=== PATIENT | female | born 1990 ===

== ENCOUNTER 2016-10-15 19:02 | Inpatient (IN) | payer MEDICAID ==
--- NOTE | 2016-10-04 15:19 | HISTORY & PHYSICAL ---
History of Present Illness (Josue Marquis M.D.; 07/03/2016 3:35 PM) The patient is a 26 year old female who presents with a complaint of Visit. The patient is here for a initial (late registrant) visit. Last menstrual period: Date: (last bleeding in "March"). The patient feels well with no complaints. The patient denies fever, abdominal pain, altered vision, edema - fingers, edema - lower extremities, heartburn, nausea or vomiting. The patient denies significant vaginal discharge. There has been no vaginal bleeding. Urinary problems include frequency. There have been no bowel problems. Nutrition: appropriate balanced diet and supplemental vitamins & iron. Previous evaluations: ultrasound (SLIUP 25w6d), RPR/VDRL (neg), rubella antibody (immune), blood typing (O+), antibody screen (neg), HIV antibody titer (neg), hepatitis B (neg) and other (TSH normal). Habits: no tobacco, alcohol or illicit drugs since learning of . Social: coping/adjusting to well and family supportive. Problem List/Past Medical (Josue Marquis M.D.; 07/03/2016 3:03 PM) History of chicken pox (Z86.19) Allergies (Maricruz Holman RN; 07/03/2016 2:43 PM) No Known Skwexbxxz41/25/2016 Family History (Josue Marquis M.D.; 07/03/2016 3:07 PM) First Degree Relatives Mother. HTN. Breast Cancer Maternal Aunt. Suicide Maternal Cousin. Niece 2 of the brother's daughters have Bermudez van Crevald syndrome, autosomal recessive Social History (Maricruz Holman RN; 07/03/2016 2:53 PM) Tobacco Use Never smoker. Alcohol Use None. Marital status . Octavio "Maryuri Ontiveros Medication History (Maricruz Holman RN; 07/03/2016 2:43 PM) Forte (1 Oral daily) Active. / History (Josue Marquis M.D.; 07/03/2016 3:29 PM) 1. Past Surgical History (Josue Marquis M.D.; 07/03/2016 3:08 PM) None07/03/2016 Review of Systems (Josue Marquis M.D.; 07/03/2016 3:29 PM) General Not Present- Fever. Skin Not Present- Rash. HEENT Not Present- Bleeding Gums, Blurred Vision and Headache. Respiratory Not Present- Difficulty Breathing. Breast Not Present- Breast Mass. Cardiovascular Not Present- Chest Pain, Fainting / Blacking Out and Shortness of Breath. Gastrointestinal Not Present- Abdominal Pain, Constipation, Nausea and Vomiting. Female Genitourinary Present- Movements Present and Frequency. Not Present - Contractions, regular, Painful Urination, Vaginal Bleeding and Vaginal Fluid. Musculoskeletal Present- Backache. Not Present- Leg Cramps. Neurological Not Present- Dizziness. Psychiatric Not Present- Depression. Hematology Not Present- Bleeding Problems and DVT. Vitals (Josue Marquis M.D.; 07/03/2016 3:29 PM) 07/03/2016 2:48 PM Weight: 194 lb Height: 66.5in Body Surface Area: 1.99 m Body Mass Index: 30.84 kg/m LMP: 12/29/2015 BP: 116/70 (Sitting, Left Arm, Standard) Physical Exam (Josue Marquis M.D.; 07/03/2016 3:32 PM) General General Appearance-Well Appearing. Build & Nutrition-overweight. Integumentary Integumentary General Characteristics Overall examination of the patient's skin reveals - no rashes. Head and Neck Neck Global Assessment - full range of motion, No lymphadenopathy. Thyroid Gland Characteristics - normal size and consistency and no palpable nodules. ENMT Mouth and Throat Oral Cavity/Oropharynx - Oropharynx - no evidence of airway distress observed. Chest and Lung Exam Chest and lung exam reveals -Clear and quiet, even and easy respiratory effort with no use of accessory muscles. Breast Commercial Solar Sales Consultant-present for exam. Nipples Characteristics - Bilateral - Normal. Breast - Bilateral-Symmetric, Non Tender, No Peau d' [place]. Breast Lump-No Palpable Breast Mass. Cardiovascular Cardiovascular examination reveals -normal heart sounds, regular rate and rhythm with no murmurs. Abdomen Inspection Inspection of the abdomen reveals - No Hernias. Contour - . Palpation/Percussion Palpation and Percussion of the abdomen reveal - Non Tender, No hepatosplenomegaly and No Palpable abdominal masses. Other Characteristics - No Costovertebral angle tenderness - Left, No Costovertebral angle tenderness - Right. Female Genitourinary External Genitalia Vulva - Characteristics - Normal. Labia Majora - Characteristics - Bilateral - Normal. Perineum - Normal. Clitoris - Normal. Labia Minora - Characteristics - Bilateral - Normal. Introitus - Characteristics - Non Tender. Bartholin's Gland - Bilateral - Non Tender. Urethra - Characteristics - Normal. Urethral Meatus - Characteristics - No Urethral Caruncle. [place] Gland - Bilateral - Normal. Speculum & Bimanual Vagina - Vaginal Wall - Normal. Vaginal Lesions - None. Vaginal Mucosa - [place] and Rugae, No Secretions. Cervix - Characteristics - Nulliparous, No Motion tenderness. Uterus - Characteristics - Non Tender. Position - Anteverted. Adnexa - Characteristics - Bilateral - Non Palpable. Bladder - Not Tender. Obstetric Exam Fundal Height - 29 cm. Heart Rate - 135 bpm. Commercial Solar Sales Consultant-present for exam . Peripheral Vascular Lower Extremity Palpation - Tenderness - Bilateral - Non Tender. Edema - Bilateral - No edema. Neuropsychiatric Mental status exam performed with findings of-Oriented X3 with appropriate mood and affect. Lymphatic Axillary General Axillary Region: Bilateral - Description - No Localized lymphadenopathy. Supraclavicular Nodes: Bilateral - Supraclavicular Lymph Nodes - No supraclavicular lymphadenopathy. Assessment & Plan (Josue Marquis M.D.; 07/03/2016 3:34 PM) Insufficient care in second trimester (O09.32) Impression: Late registrant, unknown LMP. Current Plans ROUTINE OBSTETRIC CARE (96632) Thin prep Pap (19266) CHLAMYDIA TRAC, AMPL, INFCT ANTIGEN (99405) NEISSERIA STEFANIE, AMPL, INFCT ANTIGEN (90369) SPECIMEN HNDLNG/TRNSPRT, OFFC > LAB (73834) Follow up in 2 weeks or as needed Pt Education - Labor: labor Signed by Josue Marquis M.D. (07/03/2016 3:35 PM) NENA
[2016-10-15] MEDS ORDERED: FENTANYL 100 MCG/2 ML VIAL IV PRN (19:09)
[2016-10-15] MEDS ORDERED: ONDANSETRON HCL 4 MG/2 ML VIAL IV PRN (19:09)
[2016-10-15] MEDS ORDERED: MISOPROSTOL 200 MCG TABLET PO PRN ×2 (19:09)
[2016-10-15] MEDS ORDERED: LIDOCAINE HCL/PF 1% 30 ML VIAL SUBCUT PRN (19:09)
[2016-10-15] MEDS ORDERED: HOME MEDICATION LIST NEEDED 1 EA EACH MISC ONE (19:09)
[2016-10-15] MEDS ORDERED: OXYTOCIN/NORMAL SALINE 30 UNIT/500 ML BAG IV SCH (19:09)
[2016-10-15] MEDS: FENTANYL 100 MCG/2 ML VIAL IV ONE (19:30)
[2016-10-15 19:59] LABS: BASOPHILS 0.3 % (0.0-2.0); EOSINOPHILS 0.9 % (0.0-6.0); EOSINOPHILS# 0.1 X 10^3uL (0.0-0.4); HEMATOCRIT 39.7 % (36.0-48.0); HEMOGLOBIN 13.4 g/dL (12.0-16.0); LYMPHOCYTES 14.3 % (20.0-40.0); LYMPHOCYTES# 1.3 X 10^3uL (0.8-3.8); MEAN CELL VOLUME 88.1 fL (84.0-102.0); MEAN CORPUS. HGB CONCENTRATION 33.7 g/dL (32.0-36.0); MEAN CORPUSCULAR HEMOGLOBIN 29.7 pg (29.0-35.0); MEAN PLATELET VOLUME 8.5 fL (7.4-10.4); MONOCYTES 5.7 % (2.0-10.0); MONOCYTES# 0.5 X 10^3uL (0.2-1.0); NEUTROPHILS 78.8 % (54.0-75.0); PLATELET COUNT 193 X 10^3uL (130-440); RED CELL DISTRIBUTION WIDTH 12.9 % (11.5-14.5); WHITE BLOOD COUNT 8.9 X 10^3uL (3.9-10.7)
--- NOTE | 2016-10-15 20:06 | PROGRESS NOTE:Antepartum ---
Assessment and Plan - Date of Encounter Date of Encounter: 10/15/16 (1) Insufficient care in third trimester Status: Acute Assessment and plan: Patient arrived with early prodromal symptoms and favorable cervix. I preformed AROM at 8pm of clear fluid. If she does not get into active labor over a few hours will add Pitocin but I suspect this will be sufficient. Current Visit: No - Time Spent With Patient Total time spent with greater than 50% in coordination of care (as documented) at patient's floor/unit and/or counseling patient: CABIN CREW: Antepartum PN Subj - Subjective Interval history: 26 yo at 41 3/7 by late 28 week U/S and unknown LMP was coming in for induction. She lost mucus plug 4 days ago and has had irreg ctx since but never q 5 min, waxing/waning in freq and severity. Good movement. Scant spotting today intermittently. No Medical problems No Surgeries Meds: PNV NKDA No TOB, ETOH, MJ, Rec Drugs to [facility] Family Hx: Autosommal Recessive disease in 2 Nieces: Bermudez van Crevald Syndrome , HTN Patient reports: appetite normal, voiding normally, pain well controlled Antepartum ROS: contractions (irreg), movement normal, no vaginal bleeding , no loss of fluid, no headache, no shortness of breath, no swelling CABIN CREW: Antepartum PN Obj Exam - Latest Vital Signs and I&O Latest Vital Signs/I&O: Intake & Output 10/15/16 10/15/16 10/16/16 05:59 17:59 05:59 Weight 101.605 kg - Exam Heart Monitor: category I Cervical Dilatation Degree: 4 Cervical Effacement Percentage: 80 Station: -1
[2016-10-15 20:46] LABS: ABO GROUP TYPE O; ANTIBODY SCREEN NEGATIVE; RH TYPE POSITIVE
[2016-10-16] MEDS: LACTATED RINGERS 1,000 ML IV SCH ×2 (00:58→03:30)
[2016-10-16] MEDS: FENTANYL 100 MCG/2 ML VIAL IV ONE (01:40)
--- NOTE | 2016-10-16 03:45 | PROGRESS NOTE:Antepartum ---
Assessment and Plan - Date of Encounter Date of Encounter: 10/16/16 (1) Insufficient care in third trimester Status: Acute Assessment and plan: I placed internal monitors. Contractions pattern inadequate. So far single variable but not a late deceleration. 130-140 with mild variability. Will get CORBY and start Pit if tolerated. Current Visit: No - Time Spent With Patient Total time spent with greater than 50% in coordination of care (as documented) at patient's floor/unit and/or counseling patient: EMERGENCY MEDICINE SPECIALIST: Antepartum PN Subj - Subjective Interval history: Contractions have increased with some cervical change. RN called for variables that were difficult to identify but may have been non recurrent lates. Patient not on pitocin yet. Patient reports: appetite normal, voiding normally, pain well controlled (Had Fentanyl, Would like to get CORBY) Antepartum ROS: contractions (irreg), movement normal, no vaginal bleeding , no loss of fluid, no headache, no shortness of breath, no swelling EMERGENCY MEDICINE SPECIALIST: Antepartum PN Obj Exam - Latest Vital Signs and I&O Latest Vital Signs/I&O: Vital Signs Temp 36.1 C L 10/16/16 02:05 Pulse 87 10/16/16 02:05 Resp 18 10/16/16 02:05 BP 129/85 10/16/16 02:05 Pulse Ox 91 10/16/16 02:05 Intake & Output 10/15/16 10/15/16 10/16/16 05:59 17:59 05:59 Intake Total 690 Output Total 350 Balance 340 Weight 101.605 kg Intake: IV 690 Left Hand 190 Lr 1000 ml Bag 1,000 ml @ 500 999 mls/hr IV CONT ANDREAS Rx#:[id number] Output: Urine 350 Other: Urine Appearance Clear Urine Color Yellow Voiding Method Toilet - Exam Heart Monitor: category II Cervical Dilatation Degree: 6 Cervical Effacement Percentage: 90 Station: -1 - Lab Labs: Laboratory Last Values WBC 8.9 X 10^3uL (3.9-10.7) 10/15/16 19:38 RBC 4.50 X 10^6uL (4.20-6.10) 10/15/16 19:38 Hgb 13.4 g/dL (12.0-16.0) 10/15/16 19:38 Hct 39.7 % (36.0-48.0) 10/15/16 19:38 MCV 88.1 fL (84.0-102.0) 10/15/16 19:38 MCH 29.7 pg (29.0-35.0) 10/15/16 19:38 MCHC 33.7 g/dL (32.0-36.0) 10/15/16 19:38 RDW 12.9 % (11.5-14.5) 10/15/16 19:38 Plt Count 193 X 10^3uL (130-440) 10/15/16 19:38 MPV 8.5 fL (7.4-10.4) 10/15/16 19:38 Neutrophils % 78.8 % (54.0-75.0) H 10/15/16 19:38 Lymphocytes % 14.3 % (20.0-40.0) L 10/15/16 19:38 Eosinophils % 0.9 % (0.0-6.0) 10/15/16 19: Basophils % 0.3 % (0.0-2.0) 10/15/16 19:38 Neutrophils # 7.0 X 10^3uL (2.6-6.7) H 10/15/16 19:38 Lymphocytes # 1.3 X 10^3uL (0.8-3.8) 10/15/16 19:38 Monocytes 5.7 % (2.0-10.0) 10/15/16 19:38 Monocytes # 0.5 X 10^3uL (0.2-1.0) 10/15/16 19: Eosinophils # 0.1 X 10^3uL (0.0-0.4) 10/15/16 19:38 Basophils # 0.0 X 10^3uL (0.0-0.1) 10/15/16 19:38 ABO Group Type o 10/15/16 19:38 Rh Factor Positive 10/15/16 19:38 Antibody Screen Negative 10/15/16:38
[2016-10-16] MEDS ORDERED: ROPIVACAINE HCL IN 0.9%NACL/PF 120 MG/60 ML SYRINGE ONE ×2 (03:49→08:03)
[2016-10-16] MEDS ORDERED: FENTANYL 100 MCG/2 ML VIAL ONE (04:06)
[2016-10-16] MEDS ORDERED: TERBUTALINE SULFATE 1 MG/ML VIAL SQ PRN (04:31)
--- NOTE | 2016-10-16 04:36 | PROGRESS NOTE:Antepartum ---
Assessment and Plan - Date of Encounter Date of Encounter: 10/16/16 (1) Insufficient care in third trimester Status: Acute Assessment and plan: FHT's more reassuring and Ctx inadequate. Will start Pitocin. Current Visit: No - Time Spent With Patient Total time spent with greater than 50% in coordination of care (as documented) at patient's floor/unit and/or counseling patient: ALIGNER TYPEWRITER: Antepartum PN Subj - Subjective Interval history: Pt just received CORBY. FHT's now Cat I on internals. Inadequate ctx pattern. Patient reports: appetite normal, voiding normally, pain well controlled (Had Fentanyl, Would like to get CORBY) Antepartum ROS: contractions (irreg), movement normal, no vaginal bleeding , no loss of fluid, no headache, no shortness of breath, no swelling ALIGNER TYPEWRITER: Antepartum PN Obj Exam - Latest Vital Signs and I&O Latest Vital Signs/I&O: Vital Signs Temp 36.1 C L 10/16/16 04:01 Pulse 85 10/16/16 04:28 Resp 20 10/16/16 04:09 BP 119/62 10/16/16 04:28 Pulse Ox 92 10/16/16 04:28 Intake & Output 10/15/16 10/15/16 10/16/16 05:59 17:59 05:59 Intake Total 690 Output Total 350 Balance 340 Weight 101.605 kg Intake: IV 690 Left Hand 190 Lr 1000 ml Bag 1,000 ml @ 500 999 mls/hr IV CONT ANDREAS Rx#:[id number] Output: Urine 350 Other: Urine Appearance Clear Urine Color Yellow Voiding Method Toilet - Exam Heart Monitor: category II - Lab Labs: Laboratory Last Values WBC 8.9 X 10^3uL (3.9-10.7) 10/15/16 19:38 RBC 4.50 X 10^6uL (4.20-6.10) 10/15/16 19:38 Hgb 13.4 g/dL (12.0-16.0) 10/15/16 19:38 Hct 39.7 % (36.0-48.0) 10/15/16 19:38 MCV 88.1 fL (84.0-102.0) 10/15/16 19:38 MCH 29.7 pg (29.0-35.0) 10/15/16 19:38 MCHC 33.7 g/dL (32.0-36.0) 10/15/16 19:38 RDW 12.9 % (11.5-14.5) 10/15/16 19:38 Plt Count 193 X 10^3uL (130-440) 10/15/16 19:38 MPV 8.5 fL (7.4-10.4) 10/15/16 19:38 Neutrophils % 78.8 % (54.0-75.0) H 10/15/16 19:38 Lymphocytes % 14.3 % (20.0-40.0) L 10/15/16 19:38 Eosinophils % 0.9 % (0.0-6.0) 10/15/16 19:38 Basophils % 0.3 % (0.0-2.0) 10/15/16 19:38 Neutrophils # 7.0 X 10^3uL (2.6-6.7) H 10/15/16 19:38 Lymphocytes # 1.3 X 10^3uL (0.8-3.8) 10/15/16 19:38 Monocytes 5.7 % (2.0-10.0) 10/15/16 19:38 Monocytes # 0.5 X 10^3uL (0.2-1.0) 10/15/16 19:38 Eosinophils # 0.1 X 10^3uL (0.0-0.4) 10/15/16 19:38 Basophils # 0.0 X 10^3uL (0.0-0.1) 10/15/16 19:38 ABO Group Type o 10/15/16 19:38 Rh Factor Positive 10/15/16 19:38 Antibody Screen Negative 10/15/16 19:38
[2016-10-16] MEDS ORDERED: OXYTOCIN/NORMAL SALINE 30 UNIT/500 ML BAG IV SCH (05:00)
[2016-10-16] MEDS ORDERED: LACTATED RINGERS 1,000 ML IV SCH ×2 (05:00→09:00)
[2016-10-16] MEDS: PHENYLEPHRINE HCL 10,000 MCG/ML VIAL ONE ×2 (05:41→07:09)
--- NOTE | 2016-10-16 06:21 | PROGRESS NOTE:Antepartum ---
Assessment and Plan - Date of Encounter Date of Encounter: 10/16/16 (1) Insufficient care in third trimester Status: Acute Assessment and plan: Will continue with expectant management. Minimize stress. Slow progress but present. Current Visit: No - Time Spent With Patient Total time spent with greater than 50% in coordination of care (as documented) at patient's floor/unit and/or counseling patient: TAPE EDGE MACHINE OPERATOR: Antepartum PN Subj - Subjective Interval history: Pit was started at 5:30. Up to 4 mu. Had an 2 min episode of bradycardia to 70's. Maternal BP did drop 112/43 but back up to normal. O2 on , position changes and Pit off. Now FHT's back to 140's. Cat II currently. She also had a couplet contraction but long spaces between. Will leave Pit off for recovery, Turn off O2 shortly and continue expectant management without Pitocin. Per RN SVE now 8 100% and 0. Patient reports: appetite normal, voiding normally, pain well controlled (Had Fentanyl, Would like to get CORBY) Antepartum ROS: contractions (irreg), loss of fluid (remains clear), movement normal, no vaginal bleeding, no headache, no shortness of breath, no swelling TAPE EDGE MACHINE OPERATOR: Antepartum PN Obj Exam - Latest Vital Signs and I&O Latest Vital Signs/I&O: Vital Signs Temp 36.8 C 10/16/16 05:57 Pulse 78 10/16/16 05:57 Resp 14 10/16/16 05:57 BP 112/43 10/16/16 05:57 Pulse Ox 92 10/16/16 05:57 Intake & Output 10/15/16 10/16/16 10/16/16 17:59 05:59 17:59 Intake Total 690 Output Total 350 Balance 340 Weight 101.605 kg Intake: IV 690 Left Hand 190 Lr 1000 ml Bag 1,000 ml @ 500 999 mls/hr IV CONT ANDREAS Rx#:[id number] Output: Urine 350 Other: Urine Appearance Clear Urine Color Yellow Uretheral (Forde) Yellow Voiding Method Toilet 10/16/16 06:33 - Exam Heart Monitor: category II Cervical Dilatation Degree: 8 Cervical Effacement Percentage: 100 Station: 0 - Lab Labs: Laboratory Last Values WBC 8.9 X 10^3uL (3.9-10.7) 10/15/16 19:38 RBC 4.50 X 10^6uL (4.20-6.10) 10/15/16 19:38 Hgb 13.4 g/dL (12.0-16.0) 10/15/16 19:38 Hct 39.7 % (36.0-48.0) 10/15/16 19:38 MCV 88.1 fL (84.0-102.0) 10/15/16 19:38 MCH 29.7 pg (29.0-35.0) 10/15/16 19:38 MCHC 33.7 g/dL (32.0-36.0) 10/15/16 19:38 RDW 12.9 % (11.5-14.5) 10/15/16 19:38 Plt Count 193 X 10^3uL (130-440) 10/15/16 19:38 MPV 8.5 fL (7.4-10.4) 10/15/16 19:38 Neutrophils % 78.8 % (54.0-75.0) H 10/15/16 19:38 Lymphocytes % 14.3 % (20.0-40.0) L 10/15/16 19:38 Eosinophils % 0.9 % (0.0-6.0) 10/15/16 19:38 Basophils % 0.3 % (0.0-2.0) 10/15/16 19:38 Neutrophils # 7.0 X 10^3uL (2.6-6.7) H 10/15/16 19:38 Lymphocytes # 1.3 X 10^3uL (0.8-3.8) 10/15/16 19:38 Monocytes 5.7 % (2.0-10.0) 10/15/16 19:38 Monocytes # 0.5 X 10^3uL (0.2-1.0) 10/15/16 19:38 Eosinophils # 0.1 X 10^3uL (0.0-0.4) 10/15/16 19:38 Basophils # 0.0 X 10^3uL (0.0-0.1) 10/15/16 19:38 ABO Group Type o 10/15/16 19:38 Rh Factor Positive 10/15/16 19:38 Antibody Screen Negative 10/15/16 19:38
--- NOTE | 2016-10-16 07:21 | PROGRESS NOTE:Antepartum ---
Assessment and Plan - Date of Encounter Date of Encounter: 10/16/16 (1) Insufficient care in third trimester Status: Acute Assessment and plan: For now continue expectant mangement. Defer Pit augmentation and expect slow progress. Keep close eye on BP. There was a fair amount of bleeding at CORBY so may have more anesthetic in blood stream. Watch BP more closely. Current Visit: No - Time Spent With Patient Total time spent with greater than 50% in coordination of care (as documented) at patient's floor/unit and/or counseling patient: ORTHODONTIC TECHNICIAN: Antepartum PN Subj - Subjective Interval history: Pit remains off. Ctx q 4-6 minutes. Occasional late but not recurrent. + scalp stim. Checked BP and 99/45. Gave neosynephrine and BP's up to 110's. mild varibility but improved. No lates currently. Patient reports: appetite normal, voiding normally, pain well controlled (Had Fentanyl, Would like to get CORBY) Antepartum ROS: vaginal bleeding (bloody show), contractions (irreg), loss of fluid (remains clear), movement normal, no headache, no shortness of breath, no swelling ORTHODONTIC TECHNICIAN: Antepartum PN Obj Exam - Latest Vital Signs and I&O Latest Vital Signs/I&O: Vital Signs Temp 36.7 C 10/16/16 07:02 Pulse 84 10/16/16 07:02 Resp 18 10/16/16 07:02 BP 99/49 10/16/16 07:05 Pulse Ox 93 10/16/16 07:02 Intake & Output 10/15/16 10/16/16 10/16/16 17:59 05:59 17:59 Intake Total 690 1228 Output Total 350 400 Balance 340 828 Weight 101.605 kg Intake: IV 690 1228 Left Hand 190 Lr 1000 ml Bag 1,000 ml @ 500 1226 999 mls/hr IV CONT ANDREAS Rx#:[id number] Pitocin/Ns 30 Unit/500 ml 2 See Dose Instructions IV CONT ANDREAS Rx#:[id number] Output: Urine 350 400 Other: Urine Appearance Clear Clear Urine Color Yellow Yellow Uretheral (Forde) Yellow Voiding Method Toilet Indwelling Catheter - Exam Heart Monitor: category II Cervical Dilatation Degree: 8 Cervical Effacement Percentage: 100 Station: +1 - Lab Labs: Laboratory Last Values WBC 8.9 X 10^3uL (3.9-10.7) 10/15/16 19:38 RBC 4.50 X 10^6uL (4.20-6.10) 10/15/16 19:38 Hgb 13.4 g/dL (12.0-16.0) 10/15/16 19:38 Hct 39.7 % (36.0-48.0) 10/15/16 19:38 MCV 88.1 fL (84.0-102.0) 10/15/16 19:38 MCH 29.7 pg (29.0-35.0) 10/15/16 19:38 MCHC 33.7 g/dL (32.0-36.0) 10/15/16 19:38 RDW 12.9 % (11.5-14.5) 10/15/16 19:38 Plt Count 193 X 10^3uL (130-440) 10/15/16 19:38 MPV 8.5 fL (7.4-10.4) 10/15/16 19:38 Neutrophils % 78.8 % (54.0-75.0) H 10/15/16 19:38 Lymphocytes % 14.3 % (20.0-40.0) L 10/15/16 19:38 Eosinophils % 0.9 % (0.0-6.0) 10/15/16 19:38 Basophils % 0.3 % (0.0-2.0) 10/15/16 19:38 Neutrophils # 7.0 X 10^3uL (2.6-6.7) H 10/15/16 19:38 Lymphocytes # 1.3 X 10^3uL (0.8-3.8) 10/15/16 19:38 Monocytes 5.7 % (2.0-10.0) 10/15/16 19:38 Monocytes # 0.5 X 10^3uL (0.2-1.0) 10/15/16 19:38 Eosinophils # 0.1 X 10^3uL (0.0-0.4) 10/15/16 19:38 Basophils # 0.0 X 10^3uL (0.0-0.1) 10/15/16 19:38 ABO Group Type o 10/15/16 19:38 Rh Factor Positive 10/15/16 19:38 Antibody Screen Negative 10/15/16 19:38
[2016-10-16] MEDS ORDERED: CEFAZOLIN SODIUM/DEXTROSE,ISO 2 GM/50 ML PIGGYBACK IV ONE (08:06)
--- NOTE | 2016-10-16 08:13 | PROGRESS NOTE:Antepartum ---
Assessment and Plan - Date of Encounter Date of Encounter: 10/16/16 (1) Failure to progress in first stage of labor Status: Acute Assessment and plan: Significantly less progress by my exam. Had decels when attempted oxytocin earlier this morning. No scalp stim during my examination. Recommend section. Discussed with patient and SO. They understand and agree. Current Visit: Yes - Time Spent With Patient Total time spent with greater than 50% in coordination of care (as documented) at patient's floor/unit and/or counseling patient: INTAKE MAN: Antepartum PN Subj - Subjective Patient reports: pain well controlled (with epidural) Antepartum ROS: no headache, no shortness of breath, no swelling INTAKE MAN: Antepartum PN Obj Exam - Latest Vital Signs and I&O Latest Vital Signs/I&O: Vital Signs Temp 36.7 C 10/16/16 07:02 Pulse 84 10/16/16 07:02 Resp 18 10/16/16 07:02 BP 113/55 10/16/16 07:22 Pulse Ox 93 10/16/16 07:02 Intake & Output 10/15/16 10/16/16 10/16/16 17:59 05:59 17:59 Intake Total 690 1228 Output Total 350 400 Balance 340 828 Weight 101.605 kg Intake: IV 690 1228 Left Hand 190 Lr 1000 ml Bag 1,000 ml @ 500 1226 999 mls/hr IV CONT ANDREAS Rx#:[id number] Pitocin/Ns 30 Unit/500 ml 2 See Dose Instructions IV CONT ANDREAS Rx#:[id number] Output: Urine 350 400 Other: Urine Appearance Clear Clear Urine Color Yellow Yellow Uretheral (Forde) Yellow Voiding Method Toilet Indwelling Catheter - Exam Heart Monitor: category II (Minimal variability, no recent decels, no accels, normal rate, no scalp stim response) Heart Rhythm: Present: regular Abdomen: Present: soft Cervical Dilatation Degree: 6 Cervical Effacement Percentage: 90 Station: -1 Additional Comments: ROT - Lab Labs: Laboratory Last Values WBC 8.9 X 10^3uL (3.9-10.7) 10/15/16 19:38 RBC 4.50 X 10^6uL (4.20-6.10) 10/15/16 19:38 Hgb 13.4 g/dL (12.0-16.0) 10/15/16 19:38 Hct 39.7 % (36.0-48.0) 10/15/16 19:38 MCV 88.1 fL (84.0-102.0) 10/15/16 19:38 MCH 29.7 pg (29.0-35.0) 10/15/16 19:38 MCHC 33.7 g/dL (32.0-36.0) 10/15/16 19:38 RDW 12.9 % (11.5-14.5) 10/15/16 19:38 Plt Count 193 X 10^3uL (130-440) 10/15/16 19:38 MPV 8.5 fL (7.4-10.4) 10/15/16 19:38 Neutrophils % 78.8 % (54.0-75.0) H 10/15/16 19:38 Lymphocytes % 14.3 % (20.0-40.0) L 10/15/16 19: Eosinophils % 0.9 % (0.0-6.0) 10/15/16 19: Basophils % 0.3 % (0.0-2.0) 10/15/16 19:38 Neutrophils # 7.0 X 10^3uL (2.6-6.7) H 10/15/16 19: Lymphocytes # 1.3 X 10^3uL (0.8-3.8) 10/15/16 19:38 Monocytes 5.7 % (2.0-10.0) 10/15/16 19: Monocytes # 0.5 X 10^3uL (0.2-1.0) 10/15/16 19: Eosinophils # 0.1 X 10^3uL (0.0-0.4) 10/15/16 19: Basophils # 0.0 X 10^3uL (0.0-0.1) 10/15/16 19:38 ABO Group Type o 10/15/16 19: Rh Factor Positive 10/15/16 19: Antibody Screen Negative 10/15/16:
[2016-10-16] MEDS ORDERED: LIDOCAINE/EPI 2% 1:200,000 10 ML VIAL ONE (08:17)
[2016-10-16] MEDS ORDERED: FAMOTIDINE 20 MG TABLET ONE (08:17)
[2016-10-16] MEDS ORDERED: CEFAZOLIN SODIUM 1 GM/10 ML VIAL ONE (08:17)
[2016-10-16] MEDS ORDERED: PHENYLEPHRINE HCL 10,000 MCG/ML VIAL ONE (08:34)
[2016-10-16] MEDS ORDERED: EPHEDrine SULFATE 50 MG/ML VIAL ONE (08:34)
[2016-10-16] MEDS ORDERED: LIDOCAINE HCL 2% 20 ML VIAL ONE (08:45)
[2016-10-16] MEDS ORDERED: MORPHINE SULFATE 10 MG/ML SYR IV PRN (08:51)
[2016-10-16] MEDS ORDERED: FENTANYL 100 MCG/2 ML VIAL IV PRN (08:51)
[2016-10-16] MEDS ORDERED: ONDANSETRON HCL 4 MG/2 ML VIAL IV PRN ×2 (08:51→12:17)
[2016-10-16] MEDS ORDERED: DIPHENHYDRAMINE 50 MG/ML VIAL IV PRN ×2 (08:51→12:17)
[2016-10-16] MEDS ORDERED: NALOXONE HCL 0.4 MG/ML VIAL IV PRN ×6 (08:51→12:17)
[2016-10-16] MEDS ORDERED: NALBUPHINE HCL 10 MG/ML AMP IV PRN ×2 (08:51→12:17)
[2016-10-16] MEDS ORDERED: DIPHENHYDRAMINE 25 MG CAPSULE PO PRN ×2 (08:51→12:17)
[2016-10-16] MEDS ORDERED: MORPHINE SULFATE/PF 10 MG/10 ML VIAL ONE (08:56)
--- NOTE | 2016-10-16 09:30 | OPERATIVE NOTE: C-Section ---
- Operative Report Date of procedure: 10/16/16 Pre-Op Diagnosis: Failure to progress, abnormal heart rhythem Post-op diagnosis: same Procedure: Primary LTC/S Anesthesia Type: Epidural Estimated Blood Loss: 800 Pathology: sent Sponge and instrument counts: correct Delivery Presentation: vertex Heart Monitor: category II Intrapartum Events: 2ndary arrest of dilation, decreased FHT variability, non- recurrent late decelerations, non-recurrent variable decelerations Amniotic Fluid: clear Cord Vessel Description: 3 Vessels Nuchal Cord # of Loops: 0 Cord clamped: Yes Cord blood obtained: No at 1 minute: 5 at 5 minutes: 9 at 10 minutes: 9 Infant Gender: Male arterial ph: 7.3 (7.343) venous ph: 7.3 (7.335) Weight: 3.194 kg Narrative: After discussion of the indications for section with the patient and her spouse, she was taken to the operative theatre, her epidural anesthesia was judged adequate for surgery. She was placed supine on the operating table in the left tilt position. Auscultation of the heart rate was 60 and her abdomen was rapidly prepped and draped in the usual sterile fashion. Surgery then proceeded in a very rapid fashion to quickly deliver the , a Ino- De La Rosa incision is made. This was carried bluntly to the fascia. The fascia was scored in the midline with the knife and extended in both lateral directions.. The fascia was mobilized from the underlying rectus muscles, the rectus muscles are divided in the midline and the peritoneal cavity was entered into superiorly without difficulty. The peritoneal incision was extended in both cephalad and caudad directions. Transverse hysterotomy incision was made and carried in both lateral directions using the muscle-splitting technique. Amniotic fluid noted to be clear. The infant was delivered from the vertex presentation without difficulty. Oropharynx and nasopharynx are suctioned. Shoulders were delivered without difficulty. The infant has tone and makes respiratory efforts at . The cord is doubly clamped and cut. Infant was handed to pediatrics for assessment with findings as noted above. The placenta is expressed and the uterus was vigorously massaged and well contracted. Internal examination reveals no anomalies or retained products. The edges of the hysterotomy incision are grasped with Mcdonald clamps. The hysterotomy incision is closed with 2 layers of 0 chromic suture; the first was a running locking stitch and the second an imbricating stitch. This resulted in excellent hemostasis. The pelvis was then copiously irrigated with warm saline. All counts are correct. The rectus muscles were plicated in the midline using a running 0 chromic suture. Subfascial tissues were hemostatic. The fascial incision was closed with running 0 PDS suture. Subcutaneous tissues were hemostatic and these were closed using interrupted 0 chromic sutures. The skin edges are reapproximated using 4-0 Monocryl subcuticular suture. Sterile dressings were applied and the patient is taken to the recovery room in good condition. Condition: stable Disposition: PACU
[2016-10-16] MEDS ORDERED: LANOLIN CREAM 1 APP/7 GM TUBE TOPICAL PRN (12:17)
[2016-10-16] MEDS ORDERED: SIMETHICONE CHEW 80 MG TABLET PO PRN (12:17)
[2016-10-16] MEDS ORDERED: DEXTROSE 5% LACTATED RINGERS 1,000 ML IV SCH (13:00)
[2016-10-16] MEDS: ACETAMINOPHEN 1,000 MG/100 ML VIAL IV SCH ×2 (13:07→19:07)
--- NOTE | 2016-10-16 18:26 | PROGRESS NOTE:C-section ---
Assessment and Plan - Date of Encounter Date of Encounter: 10/16/16 (1) care following delivery Problem details: S/P primary LTC/S Status: Acute Assessment and plan: Stable at this time, taking po. Plan routine management. Current Visit: Yes - Time Spent With Patient Total time spent with greater than 50% in coordination of care (as documented) at patient's floor/unit and/or counseling patient: CLIENT FINANCE ANALYST: C-Sec PN Subjective Interval History: Has been doing well since surgery. Post-op Day: 0 Patient reports: pain well controlled, no nausea Narka: doing well CLIENT FINANCE ANALYST: C-Sec PN Obj Exam - Latest Vital Signs and I&O Latest Vital Signs/I&O: Vital Signs Temp 37.0 C 10/16/16 11:37 Pulse 82 10/16/16 11:37 Resp 18 10/16/16 11:37 BP 116/62 10/16/16 11:37 Pulse Ox 93 10/16/16 10:30 Intake & Output 10/16/16 10/16/16 10/17/16 05:59 17:59 05:59 Intake Total 690 35414 Output Total 350 1600 Balance 340 38888 Weight 101.605 kg 101.605 kg Intake: IV 690 28312 Left Hand 190 4000 Lr 1000 ml Bag 1,000 ml @ 500 7026 999 mls/hr IV CONT ANDREAS Rx#:[id number] Pitocin/Ns 30 Unit/500 ml 1002 See Dose Instructions IV CONT ANDREAS Rx#:[id number] Oral 50 Output: Urine 350 1600 Uretheral (Forde) 200 Other: Urine Appearance Clear Clear Urine Color Yellow Pale Uretheral (Forde) Yellow Pale Yellow Voiding Method Toilet Indwelling Catheter - Exam Lungs: Bilateral: normal Heart Rhythm: Present: regular Extremities: Absent: tenderness Abdomen: Present: soft. Absent: distention Bowel sounds: present Incision: Present: dressed Uterus: Present: firm - Lab Labs: Laboratory Last Values WBC 8.9 X 10^3uL (3.9-10.7) 10/15/16 19:38 RBC 4.50 X 10^6uL (4.20-6.10) 10/15/16 19:38 Hgb 13.4 g/dL (12.0-16.0) 10/15/16 19:38 Hct 39.7 % (36.0-48.0) 10/15/16 19:38 MCV 88.1 fL (84.0-102.0) 10/15/16 19:38 MCH 29.7 pg (29.0-35.0) 10/15/16 19:38 MCHC 33.7 g/dL (32.0-36.0) 10/15/16 19:38 RDW 12.9 % (11.5-14.5) 10/15/16 19:38 Plt Count 193 X 10^3uL (130-440) 10/15/16 19:38 MPV 8.5 fL (7.4-10.4) 10/15/16 19:38 Neutrophils % 78.8 % (54.0-75.0) H 10/15/16 19:38 Lymphocytes % 14.3 % (20.0-40.0) L 10/15/16 19:38 Eosinophils % 0.9 % (0.0-6.0) 10/15/16 19: Basophils % 0.3 % (0.0-2.0) 10/15/16 19:38 Neutrophils # 7.0 X 10^3uL (2.6-6.7) H 10/15/16 19:38 Lymphocytes # 1.3 X 10^3uL (0.8-3.8) 10/15/16 19:38 Monocytes 5.7 % (2.0-10.0) 10/15/16 19:38 Monocytes # 0.5 X 10^3uL (0.2-1.0) 10/15/16 19:38 Eosinophils # 0.1 X 10^3uL (0.0-0.4) 10/15/16 19:38 Basophils # 0.0 X 10^3uL (0.0-0.1) 10/15/16 19:38 ABO Group Type o 10/15/16 19:38 Rh Factor Positive 10/15/16 19:38 Antibody Screen Negative 10/15/16:38
[2016-10-16] MEDS: DOCUSATE SODIUM 100 MG CAPSULE PO SCH (20:07)
[2016-10-17] MEDS: ACETAMINOPHEN 1,000 MG/100 ML VIAL IV SCH ×3 (00:45→20:00)
[2016-10-17 05:35] LABS: BASOPHILS 0.4 % (0.0-2.0); EOSINOPHILS 0.9 % (0.0-6.0); EOSINOPHILS# 0.1 X 10^3uL (0.0-0.4); HEMATOCRIT 35.1 % (36.0-48.0); HEMOGLOBIN 11.7 g/dL (12.0-16.0); LYMPHOCYTES 11.1 % (20.0-40.0); MEAN CORPUS. HGB CONCENTRATION 33.4 g/dL (32.0-36.0); MEAN CORPUSCULAR HEMOGLOBIN 29.4 pg (29.0-35.0); MEAN PLATELET VOLUME 8.4 fL (7.4-10.4); MONOCYTES 4.7 % (2.0-10.0); MONOCYTES# 0.4 X 10^3uL (0.2-1.0); NEUTROPHILS 82.9 % (54.0-75.0); NEUTROPHILS# 7.4 X 10^3uL (2.6-6.7); RED BLOOD COUNT 3.99 X 10^6uL (4.20-6.10); RED CELL DISTRIBUTION WIDTH 12.9 % (11.5-14.5); WHITE BLOOD COUNT 8.9 X 10^3uL (3.9-10.7)
[2016-10-17] MEDS: DOCUSATE SODIUM 100 MG CAPSULE PO SCH ×2 (11:27→20:59)
[2016-10-18 00:12] VITALS: RESP 16
[2016-10-18 04:57] VITALS: TEMP 97.3
[2016-10-18] MEDS: DOCUSATE SODIUM 100 MG CAPSULE PO SCH (09:42)
[2016-10-18] MEDS ORDERED: WITCH HAZEL 1 EACH MED..PAD TOPICAL ONE (09:50)
[2016-10-18] MEDS ORDERED: WITCH HAZEL 1 EACH MED..PAD TOPICAL PRN (09:59)
--- NOTE | 2016-10-18 10:10 | DC SUMMARY: Obstetrical/GYN ---
Discharge Summary: Surg/OB Provider: Date of Admission: 10/15/16 Admitting Provider: JOSUE MARQUIS MD Attending Provider: JOSUE MARQUIS MD Discharging Provider: JOSUE MARQUIS MD Primary Care Provider: Discharge Date: 10/18/16 - Diagnosis (1) care following delivery Status: Acute Hospital Course: Ms. COONEY is a 26 year old G1 female at 41+ weeks based on 25 week ultrasound. complicated by late care, 25 weeks. She presents in early active labor with a Cat I tracing, amniotomy revealed clear fluid. She made slow progress and ocytocin augmentation was attempted but not tolerated by fetus with development of heart rate decelerations. She developed a persistent Cat II tracing and made slow progress to 6 centimeters. While scalp stimulation was initially positive eventually there was no response and decision was made to proceed with delivery. Just prior to skin prep for surgery the heart rate was noted to be 60 and a low transverse section was performed in rapid fashion. Surgery was uncomplicated and she delivered a viable male infant with Apgars of 5/9/9. Both mother and did well after delivery. On the second postoperative day she had met all criteria and is discharged to home in good condition. Discharge - Patient/Caregiver Discharge Instructions Activity Level: Abdominal and pelvic rest Diet: Regular Additional Instructions: Josue Marquis M.D. POST SECTION INSTRUCTIONS 1. Please make an appointment to see me for an incision check one week after delivery as well as a final check up to six weeks following delivery. Please call the clinic to make these appointments. Do not hesitate to call me, or my nurse, with any questions or problems regarding gynecological care or breast feeding. 2. It would be best for you to restrict your activities to baby care for the first week. As you feel up to it, you may increase your activity. Use your own judgment, listen to your body, and take frequent short rests as you become tired. 3. You will receive a prescription for pain pills upon hospital discharge. I recommend you alternate these with ibuprofen. If needed, take as directed. Do not drive a car or operate machinery as long as you are taking narcotic pain medication. 4. You may climb stairs but try to make the trip worthwhile. Do not walk up and down excessively. Do not lift anything heavier than your baby for at least four weeks following delivery. 5. If you are breast feeding, wear a well supporting bra day and night (a maternity or sports bra). Use the lanolin or precious cream provided to you after each feeding. It does not need to be washed off before you feed your baby. Do not use soap on your nipples; wash them with clear water. Wash your hands before you handle your baby or your breasts. Do not allow your nipples to become caked with milk or to be constantly wet with milk that leaks between feedings. 6. To help prevent complications with : a)Ensure good position and latch b)Ensure feeding on demand c)Empty breasts fully d)Use hand expression to help relieve fullness e)Expose breast engorgement to warm water by shower or basin f)Call if unrelieved or if you have questions Jackeline Rodriguez : Erum Santos, ___[phone] Boaz Odonnell, ___ 7. If you are not breast feeding, wear a well supporting bra day and night for at least two full weeks. Should your breasts become full, apply ice packs and avoid stimulation to your breasts. This full feeling may last 2-3 days and then gradually subside. 8. Start your Kegel exercises at home. Restrict your normal exercise program until after your six-week check up. 9. Take only showers for the first two weeks. Baths may be taken after two weeks if desired and the bleeding is minimal. 10. Vaginal discharge is usually bright red for two to four days following delivery, and then becomes pinkish or dark red in four to ten days. The vaginal flow will gradually subside. You may have intermittent episodes of increased bleeding and may pass a few clots. The bleeding should not be heavier than a normal period for more than a few days. Use only mini or maxi pads. Vaginal discharge may last four to eight weeks. Call me if bleeding seems excessive. No tampons, douching or intercourse until your bleeding stops. 11. Bleeding may be heavier after activity. If your bleeding does not slow down after resting, please notify me. 12. Eat a well-balanced diet. You should drink 6-8 glasses of fluid per day and eat the same kind of diet you were on during your . Fresh fruits, green leafy vegetables, bran cereals and whole wheat breads should be eaten to prevent constipation. If necessary, stool softeners may be obtained at the pharmacy without a prescription. Use as directed. Milk of Magnesia may be used for constipation. 13. Continue taking your vitamins and iron for one month. If you are breast feeding, continue taking your vitamins as long as you breast feed. If you are breast feeding be very cautious about taking medications not prescribed by me. Always inform your physician that you are breast feeding before he or she prescribes any medication for you. 14. Report any vomiting or fever above 100.5 degrees. It is not necessary to take your temperature daily, but if you feel like you have a fever, take your temperature and call me if necessary. 15. Carmencita will be removed in the office, all other suture material dissolves. The skin may separate a small amount. Clean the area with warm water and make an appointment to be seen. Report any greenish drainage to me, clear drainage is quite normal. If the drainage is excessive, make an appointment to see me. 16. I can be reached through the hospital charge nurse ([phone]) or the Hospital [facility] ([phone]). If no one answers, please leave your name and number and expect a return phone call in 30 minutes. Josue Marquis M.D. Follow up: JOSUE MARQUIS MD [ACTIVE (Staff Physician)] - 7 Days Overall discharge status: stable Home Medications: Ibuprofen [Motrin] 2 - 3 tab PO Q4H PRN #30 tablet PRN Reason: pain oxyCODONE HCL/ACETAMINOPHEN [Percocet 5-325 mg Tablet] 1 each PO Q4H PRN #30 tablet PRN Reason: Pain, Severe Disposition: HOME, SELF-CARE Obstetrical/TWISTER HAND Discharge Exam - Latest Vital Signs and I&O Latest Vital Signs/I&O: Vital Signs Temp 36.3 C L 10/18/16 04:30 Pulse 94 H 10/18/16 04:30 Resp 16 10/18/16 04:30 BP 119/72 10/18/16 04:30 Pulse Ox 93 10/18/16 04:30 Intake & Output 10/17/16 10/18/16 10/18/16 17:59 05:59 17:59 Intake Total 700 Output Total 1850 Balance -1150 Intake: IV 200 Left Hand 200 Oral 500 Output: Urine 1850 Other: Urine Appearance Clear Urine Color Pale Yellow Voiding Method Toilet Toilet # Voids 1 - Exam Lungs: Bilateral: normal Heart Rhythm: Present: regular Extremities: Absent: tenderness Abdomen: Present: soft. Absent: distention Bowel sounds: present Incision: Present: well approximated, sutures intact. Absent: erythematous Uterus: Present: firm, non tender Discharge Summary Data - Medication History Medication History: Home Medications Pnv No.122/Iron/Folic Acid [ Multi Tablet] 1 tab PO DAILY 10/15/16 Inpatient Medications 10/16/16 12:17 Lanolin Cream [Lansinoh] 1 gregorio TOPICAL PRN PRN Simethicone Chew [Mylicon] 80 mg PO Q6H PRN oxyCODONE HCL IR [Oxy Ir] 5 mg PO Q3H PRN 10/16/16 21:00 Docusate Sodium [Colace] 100 mg PO BID Procedures and tests throughout hospitalization: Completed Lab Orders 10/15/16 19:38 ABO GROUP [HEM] Urgent ANTIBODY SCREEN [HEM] Urgent CBC AUTO DIF, MDIF/RMOR IF IND [HEM] Urgent RH TYPE [HEM] Urgent 10/17/16 05:00 CBC AUTO DIF, MDIF/RMOR IF IND [HEM] AMDRAW Pending Orders 09/15/16 11:47 Resuscitation Status Routine 10/15/16 19:09 Admit: Inpatient Routine VTE Prophylaxis Scoring/ Ordering Routine 10/16/16 08:51 Warm blankets if temp<36 C PRN 10/16/16 08:52 Vital Signs 10/16/16 12:17 Intake and Output QSHIFT I&O Notify Physician PRN Post Assessment Q4H Turn, Cough, and Deep Breathe PER PROTOCOL Lanolin Cream [Lansinoh] 1 gregorio TOPICAL PRN PRN Simethicone Chew [Mylicon] 80 mg PO Q6H PRN oxyCODONE HCL IR [Oxy Ir] 5 mg PO Q3H PRN 10/16/16 21:00 Docusate Sodium [Colace] 100 mg PO BID 10/16/16 Dinner Regular [DIET]
[2016-10-18 12:39] VITALS: BP 120/72; PULSE 90; O2SAT 96
== END 2016-10-18 12:30 | disposition home or self-care (01) | DRG 766 ==
LOC: NLCPRO 19:02 → NLC 19:03
PROVIDERS: ADMIT Obstetrics & Gynecology; ATTEND Obstetrics & Gynecology
PROC: 10D00Z1 Extraction of Products of Conception, Low, Open Approach (ICD-10-PCS; principal; 2016-10-15)
DX: O76 Abnormality in fetal heart rate and rhythm complicating labor and delivery (principal); O62.1 Secondary uterine inertia; O09.33 Supervision of pregnancy with insufficient antenatal care, third trimester; Z37.0 Single live birth
CPT/HCPCS: 36415; 85025; 86850; 86900; 86901; J0690; J2370; J2795; J7120